=== PATIENT | male | born 1950 | race Caucasian/White ===

== ENCOUNTER 2020-07-13 23:46 | Emergency (ER) | payer OTHER ==
[~2020-07-13 23:46] MED LIST: ALFUZOSIN HCL E10 MG PO; ANTIVERT 12.512.5 MG PO; ASPIRIN EC81 MG PO; ASPIRIN81 MG PO; CLARITIN 10MG T10 MG PO; COLACE 100MG C100 MG PO; ELIQUIS5 MG PO; GLUCOTROL5 MG PO; KLONOPIN TAB 00.5 MG PO; LISINOPRIL5 MG PO; LOMOTIL 2.5-0.1 EACH PO; METFORMIN HCL1000 MG PO; METHADONE HCL TA5 MG PO; MIRAPEX1 MG PO; NARCAN; NEURONTIN 400400 MG PO; PRAMIPEXOLE DI1.5 MG PO; PROTONIX 40 MG40 M1 PO; RESTORIL30 MG PO; RISPERDAL1 MG PO; RISPERDAL4 MG PO; SYNTHROID 125125 MCG PO; TRAZODONE HCL100 MG PO; UROXATRAL 10 MG10 MG PO; VIAGRA100 MG PO; VIBRAMYCIN 100100 MG PO; VISTARIL 25 MG25 MG PO; VITAMIN D-32000 UNIT PO; VITAMIN D31000 UNI1 PO; VITAMIN D31000 UNIT PO; ZOFRAN ODT 4 MG4 MG SL
[2020-07-14 02:39] LABS: HEMOGLOBIN 14.5 gm/dl (14.0-17.5); RED BLOOD COUNT 4.39 M/UL (4.20-5.50); WHITE BLOOD COUNT 8.2 K/UL (4.5-11.0)
[2020-07-14 02:42] LABS: BUN/CREATININE RATIO 20 (0-10)
== END 2020-07-14 08:00 | disposition home or self-care (01) ==
LOC: ER1 23:46
PROVIDERS: Physician Assistant
DX: R10.9 Unspecified abdominal pain (principal); E11.9 Type 2 diabetes mellitus without complications; I10 Essential (primary) hypertension; Z90.49 Acquired absence of other specified parts of digestive tract
CPT/HCPCS: 36415; 80053; 81001; 83690; 85025; 87086; 99284; Q9967

== ENCOUNTER → 2020-10-17 | Outpatient (CLI) | payer OTHER ==
[~2020-10-17] MED LIST changes: +CEPHALEXIN500 M1 PO; +CYCLOBENZAPRINE10 MG PO; +IBUPROFEN800 MG PO; +K-DUR TAB 20 M20 MEQ PO; +LASIX40 MG PO; +MOBIC15 MG PO
== END ==
LOC: HEART 5 13:39
DX: I70.213 Atherosclerosis of native arteries of extremities with intermittent claudication, bilateral legs (principal); E11.9 Type 2 diabetes mellitus without complications; J43.9 Emphysema, unspecified; G47.33 Obstructive sleep apnea (adult) (pediatric); G25.81 Restless legs syndrome; F43.10 Post-traumatic stress disorder, unspecified; E55.9 Vitamin D deficiency, unspecified; F41.9 Anxiety disorder, unspecified; M47.16 Other spondylosis with myelopathy, lumbar region; E03.9 Hypothyroidism, unspecified; K80.20 Calculus of gallbladder without cholecystitis without obstruction; N40.0 Benign prostatic hyperplasia without lower urinary tract symptoms; K21.9 Gastro-esophageal reflux disease without esophagitis; E66.9 Obesity, unspecified; R94.30 Abnormal result of cardiovascular function study, unspecified; Z72.0 Tobacco use

== ENCOUNTER 2020-10-26 15:10 | Emergency (ER) | payer OTHER ==
[~2020-10-26 15:10] MED LIST changes: -CEPHALEXIN500 M1 PO; -CYCLOBENZAPRINE10 MG PO; -IBUPROFEN800 MG PO; -K-DUR TAB 20 M20 MEQ PO; -LASIX40 MG PO; -MOBIC15 MG PO
[2020-10-26] MEDS ORDERED: IBUPROFEN800 MG PO (16:55)
[2020-10-26] MEDS ORDERED: CYCLOBENZAPRINE10 MG PO (16:55)
== END 2020-10-26 17:05 | disposition home or self-care (01) ==
LOC: ER1 15:10
DX: M54.42 Lumbago with sciatica, left side (principal); M54.41 Lumbago with sciatica, right side; I10 Essential (primary) hypertension; E11.9 Type 2 diabetes mellitus without complications; F17.210 Nicotine dependence, cigarettes, uncomplicated; Z88.1 Allergy status to other antibiotic agents; Z90.49 Acquired absence of other specified parts of digestive tract
CPT/HCPCS: 72131; 96372; 99283; J2930

== ENCOUNTER 2020-11-13 12:29 | Emergency (ER) | payer OTHER ==
[~2020-11-13 12:29] MED LIST changes: +CYCLOBENZAPRINE10 MG PO; +IBUPROFEN800 MG PO
[2020-11-13 14:08] LABS: HEMOGLOBIN 14.7 gm/dl (14.0-17.5); RED BLOOD COUNT 4.41 M/UL (4.20-5.50); WHITE BLOOD COUNT 6.9 K/UL (4.5-11.0)
[2020-11-13 14:35] LABS: BUN/CREATININE RATIO 18 (0-10)
[2020-11-13] MEDS ORDERED: MOBIC15 MG PO (16:45)
[2020-11-13] MEDS ORDERED: K-DUR TAB 20 M20 MEQ PO (16:45)
[2020-11-13] MEDS ORDERED: LASIX40 MG PO (16:45)
[2020-11-13] MEDS ORDERED: CEPHALEXIN500 M1 PO (16:45)
== END 2020-11-13 17:04 | disposition home or self-care (01) ==
LOC: ER1 12:29
PROVIDERS: Physician Assistant
DX: M51.16 Intervertebral disc disorders with radiculopathy, lumbar region (principal); M47.26 Other spondylosis with radiculopathy, lumbar region; I11.0 Hypertensive heart disease with heart failure; I50.9 Heart failure, unspecified; L03.116 Cellulitis of left lower limb; E11.9 Type 2 diabetes mellitus without complications; Z90.49 Acquired absence of other specified parts of digestive tract; Z79.899 Other long term (current) drug therapy; R60.0 Localized edema
CPT/HCPCS: 71045; 72100; 80053; 83880; 84484; 85025; 93005; 93971; 99284

== ENCOUNTER 2021-06-02 19:40 | Emergency (ER) | payer OTHER ==
[~2021-06-02 19:40] MED LIST changes: +CEPHALEXIN500 M1 PO; +K-DUR TAB 20 M20 MEQ PO; +LASIX40 MG PO; +MOBIC15 MG PO
[2021-06-02] MEDS ORDERED: HYDROCODON-ACE1 EAC4 PO (20:57)
== END 2021-06-02 21:37 | disposition home or self-care (01) ==
LOC: ER1 19:40
DX: M25.551 Pain in right hip (principal); E11.40 Type 2 diabetes mellitus with diabetic neuropathy, unspecified; W19.XXXA Unspecified fall, initial encounter; I10 Essential (primary) hypertension
CPT/HCPCS: 72131; 73502; 99284